=== PATIENT | female | born 1990 | race Caucasian/White ===

== ENCOUNTER 2017-07-09 15:48 | Emergency (ER) | payer MEDICAID ==
[~2017-07-09] VITALS: Ht 160 cm; Wt 95.5 kg
[~2017-07-09 15:48] MED LIST: ULTRAM 50MG TAB50 MG PO; VENTOLIN0.09 MG IH
[2017-07-09 15:53] VITALS: BP 110/55; PULSE 58; TEMP 98.8
== END 2017-07-09 16:44 | disposition home or self-care (01) ==
LOC: COL.ER 15:48
DX: S60.012A Contusion of left thumb without damage to nail, initial encounter (principal); Z86.73 Personal history of transient ischemic attack (TIA), and cerebral infarction without residual deficits; W23.1XXA Caught, crushed, jammed, or pinched between stationary objects, initial encounter; Y92.009 Unspecified place in unspecified non-institutional (private) residence as the place of occurrence of the external cause

== ENCOUNTER 2017-07-11 22:57 | Emergency (ER) | payer MEDICAID ==
[~2017-07-11] VITALS: Ht 160 cm; Wt 104.5 kg
[2017-07-11 23:00] VITALS: BP 124/69; PULSE 75; TEMP 98.2
[2017-07-15] MEDS ORDERED: VISTARIL 2525 MG/CAP PO (13:20)
== END 2017-07-11 23:52 | disposition home or self-care (01) ==
LOC: COL.ER 22:57
DX: M25.532 Pain in left wrist (principal); F17.210 Nicotine dependence, cigarettes, uncomplicated; X58.XXXA Exposure to other specified factors, initial encounter
CPT/HCPCS: Q4050